=== PATIENT | male | born 1965 | race Caucasian/White ===

== ENCOUNTER 2018-04-14 20:26 | Emergency (ER) | payer BC, OTHER ==
[~2018-04-14] VITALS: Ht 177.8 cm; Wt 90.7 kg
[2018-04-14] MEDS ORDERED: LACTATED RINGERS 1,000 ML IV ONE ×2 (20:44→20:46)
[2018-04-14] MEDS ORDERED: ONDANSETRON 4 MG/2 ML (SDV) Z0FRAN IVP ONE (20:45)
[2018-04-14] MEDS ORDERED: KETOROLAC 30 MG/ML VIAL IVP ONE (20:45)
--- NOTE | 2018-04-14 20:51 | ED Abdominal Pain ---
General Stated Complaint: ABD PAIN Source of Information: Patient Exam Limitations: No Limitations History of Present Illness Date Seen by Provider: Apr 14, 2018 Time Seen by Provider: 20:34 Initial Comments The patient presents to the ER by private conveyance with a chief complaint that this morning he woke up having some crampy abdominal pain, bloating and unable to have a bowel movement for the past couple days. He says this weekend he was at [place] with a friend of his and they both were out in the sun a lot as well he does not drink much water only about 2 bottles a day plus a bottle of Gatorade. He says again while sun drink some beer and not much water this weekend and he feels like he may have overdone it. His pain is mostly in his right lower quadrant but radiates all the way across to his left lower quadrant as well. He is not been able to have any bowel movement despite trying. He feels bloated and they tried drinking some Gatorade and water to get things moving and it just made him nauseated. He said his friend also had similar symptoms except he's having diarrhea now. He has not had any fevers or chills. He's never had a abdominal surgery. He denies any history of trauma. Allergies and Home Medications Allergies Coded Allergies: No Known Drug Allergies (Unverified , 04/14/18) Patient Home Medication List Home Medication List Reviewed: Yes Review of Systems Constitutional: No chills, No diaphoresis, No fever; malaise; No weakness EENTM: No Eye Pain, No Ear Pain Respiratory: Denies Cough, Denies Shortness of Air Cardiovascular: Denies Chest Pain, Denies Edema Gastrointestinal: See HPI, Abdomen Distended, Abdominal Pain, Constipated; Denies Difficulty Swallowing; Nausea; Denies Poor Appetite; Poor Fluid Intake; Denies Rectal Bleeding, Denies Vomiting Genitourinary: Denies Burning, Denies Discharge, Denies Drainage Musculoskeletal: No back pain, No joint pain Skin: No pruritus, No rash Psychiatric/Neurological: Denies Headache, Denies Numbness, Denies Paresthesia Past Giyudwe-Quthpg-Idveok Hx Patient Social History Alcohol Use: Regular Use Alcohol Beverage of Choice: Beer Recreational Drug Use: No Recent Foreign Travel: No Contact w/Someone Who Travel: No Physical Exam Vital Signs Vital Signs - First Documented 04/14/18 20:34 Temp 98.1 Pulse 106 Resp 29 B/P (MAP) 173/125 (141) Pulse Ox 98 O2 Delivery Room Air Capillary Refill : General Appearance: WD/WN, mild distress HEENT: PERRL/EOMI, pharynx normal Neck: non-tender, normal inspection Respiratory: chest non-tender, lungs clear, no respiratory distress, no accessory muscle use Cardiovascular: normal peripheral pulses, regular rate, rhythm, no edema Peripheral Pulses: 2+ Radial Pulses (R), 2+ Radial Pulses (L) Gastrointestinal: non tender, soft, abnormal bowel sounds (quiescent); No guarding, No rebound, No tenderness; other (no psoas sign or other mesenteric signs. No Nassar's point tenderness) Neurologic/Psychiatric: alert, oriented x 3 Skin: normal color, warm/dry Progress/Results/Core Measures Results/Orders Lab Results Laboratory Tests Test 04/14/18 20:45 Range/Units White Blood Count 13.2 H 4.3-11.0 10^3/uL Red Blood Count 5.01 4.35-5.85 10^6/uL Hemoglobin 16.6 13.3-17.7 G/DL Hematocrit 46 40-54 % Mean Corpuscular Volume 91 80-99 FL Mean Corpuscular Hemoglobin 33 25-34 PG Mean Corpuscular Hemoglobin Concent 36 32-36 G/DL Red Cell Distribution Width 12.2 10.0-14.5 % Platelet Count 339 130-400 10^3/uL Mean Platelet Volume 8.5 7.4-10.4 FL Neutrophils (%) (Auto) 82 H 42-75 % Lymphocytes (%) (Auto) 8 L 12-44 % Monocytes (%) (Auto) 10 0-12 % Eosinophils (%) (Auto) 1 0-10 % Basophils (%) (Auto) 0 0-10 % Neutrophils # (Auto) 10.8 H 1.8-7.8 X 10^3 Lymphocytes # (Auto) 1.0 1.0-4.0 X 10^3 Monocytes # (Auto) 1.3 H 0.0-1.0 X 10^3 Eosinophils # (Auto) 0.1 0.0-0.3 10^3/uL Basophils # (Auto) 0.1 0.0-0.1 10^3/uL Sodium Level 135 135-145 MMOL/L Potassium Level 3.9 3.6-5.0 MMOL/L Chloride Level 99 98-107 MMOL/L Carbon Dioxide Level 22 21-32 MMOL/L Anion Gap 14 5-14 MMOL/L Blood Urea Nitrogen 8 7-18 MG/DL Creatinine 0.82 0.60-1.30 MG/DL Estimat Glomerular Filtration Rate > 60 BUN/Creatinine Ratio 10 Glucose Level 117 H 70-105 MG/DL Calcium Level 10.1 8.5-10.1 MG/DL Magnesium Level 1.9 1.8-2.4 MG/DL Total Bilirubin 1.3 H 0.1-1.0 MG/DL Aspartate Amino Transf (AST/SGOT) 40 H 5-34 U/L Alanine Aminotransferase (ALT/SGPT) 58 H 0-55 U/L Alkaline Phosphatase 93 40-136 U/L Total Protein 7.6 6.4-8.2 GM/DL Albumin 4.4 3.2-4.5 GM/DL My Orders Orders - ALDEN OLIVO Cbc With Automated Diff (04/14/18 20:44) Comprehensive Metabolic Panel (04/14/18 20:44) Magnesium (04/14/18 20:44) Abdomen, Flat & Upright/Decub (04/14/18 20:44) Saline Lock/Iv-Start (04/14/18 20:44) Lactated Ringers (Lr 1000 Ml Iv Solution (04/14/18 20:44) Ondansetron Injection (Zofran Injectio (04/14/18 20:45) Ketorolac Injection (Toradol Injection) (04/14/18 20:45) Saline Lock/Iv-Start (04/14/18 20:46) Lactated Ringers (Lr 1000 Ml Iv Solution (04/14/18 20:46) Medications Given in ED Current Medications Medications Dose Ordered Sig/Brian Route Start Time Stop Time Status Last Admin Dose Admin Ketorolac Tromethamine 15 mg ONCE ONCE IVP 04/14/18 20:45 04/14/18 20:46 DC 04/14/18 20:52 15 MG Lactated Ringer's 1,000 ml @ 0 mls/hr Q0M ONCE IV 04/14/18 20:44 04/14/18 20:46 DC 04/14/18 20:52 1,000 MLS/HR Lactated Ringer's 1,000 ml @ 0 mls/hr Q0M ONCE IV 04/14/18 20:46 04/14/18 20:47 DC 04/14/18 20:52 1,000 MLS/HR Ondansetron HCl 4 mg ONCE ONCE IVP 04/14/18 20:45 04/14/18 20:46 DC 04/14/18 20:52 4 MG Vital Signs/I&O 04/14/18 20:34 Temp 98.1 Pulse 106 Resp 29 B/P (MAP) 173/125 (141) Pulse Ox 98 O2 Delivery Room Air Progress Progress Note #1: Time: 20:50 Progress Note The patient appears dry on examination with sunburn skin. Appears she may have had too much heat exposure and is dehydrated with possible ileus. A plain film x -ray and some fluids as well as nausea and Toradol for pain and we'll reexamine him. If we see an elevated white count or other worrisome symptoms or features then we may get a CT scan but his belly is benign on examination. Progress Note #2: Time: 21:50 Progress Note The patient's pain is improved down to 1 and his nausea has resolved. He is feeling much better and is been able to get up and urinate several times. He still has about half a liter fluids left ago. We have discussed his case labs and imaging and offered further workup versus conservative care and we both agree the conservative cares probably a reasonable way to go. We'll encourage him to drink more fluids and follow up outpatient as needed. We'll make sure he has some nausea medicine and if he needs to come back to the ER he is more than welcome to return. Diagnostic Imaging Diagonstic Imaging: Xray Plain Films/CT/US/NM/MRI: abdomen Comments Nonspecific bowel gas pattern without evidence of constipation or impaction. No evidence of a transition point to allude to a obstruction. No free air. VIA [facility] [place] [place] NAME: MIL [facility]RAIZA [facility] REC#: [id number] PT STATUS: REG ER : 1965 PHYSICIAN: ALDEN OLIVO MD ADMIT DATE: 04/14/18/ER Draft Date of Exam:04/14/18 ABDOMEN, FLAT & UPRIGHT/DECUB INDICATION: Abdominal pain with nausea and emesis. EXAM: Supine images of the abdomen are obtained. FINDINGS: Overall bowel gas pattern is unremarkable. There is no evidence of bowel obstruction. No pathologic abdominal calcification is seen. There is no evidence of free intraperitoneal gas or pneumatosis. IMPRESSION: No acute abnormality is seen on radiographic study of the abdomen. Dictated on workstation # [id number] Dict: 04/14/182120 Trans: 04/14/182126 [facility] [id number] Interpreted by: NEGRITA SAINZ MD Electronically signed by: Reviewed: Reviewed by Me Departure Impression Primary Impression: Heat exhaustion Qualified Codes: T67.5XXA - Heat exhaustion, unspecified, initial encounter Additional Impressions: Moderate dehydration Ileus Disposition: HOME, SELF-CARE Condition: Improved Departure-Patient Inst. Decision time for Depature: 21:52 Referrals: GARETT FLAHERTY MD (PCP) Primary Care Physician Patient Instructions: Dehydration, Adult (DC) Add. Discharge Instructions: Make sure drinking plenty of fluids. Sports drinks or good idea as well. He should be constantly sweating when you're out in the sun as well as urinating several times throughout the day when you're working. If not then you need to take more breaks and drink water and/or sports drinks. If you have nausea then you can take one tablet of Zofran every [address] under tongue and allowed to absorb through your mouth. If your symptoms do not improve over the next several days then you should follow-up with a primary care doctor or if your symptoms worsen then you should return to the nearest ER. Copy Copies To 1: GARETT FLAHERTY MD, TITUS J Apr 14, 2018 20:51
[2018-04-14 20:53] LABS: BASOPHILS # (AUTO) 0.1 10^3/uL (0.0-0.1); BASOPHILS % (AUTO) 0 % (0-10); EOSINOPHILS # (AUTO) 0.1 10^3/uL (0.0-0.3); EOSINOPHILS % (AUTO) 1 % (0-10); HEMATOCRIT 46 % (40-54); HEMOGLOBIN 16.6 G/DL (13.3-17.7); LYMPHOCYTES % (AUTO) 8 % (12-44); MEAN CORPUSCULAR HEMOGLOBIN 33 PG (25-34); MEAN CORPUSCULAR HGB CONC 36 G/DL (32-36); MEAN CORPUSCULAR VOLUME 91 FL (80-99); MEAN PLATELET VOLUME 8.5 FL (7.4-10.4); MONOCYTES # (AUTO) 1.3 X 10^3 (0.0-1.0); MONOCYTES % (AUTO) 10 % (0-12); NEUTROPHILS # (AUTO) 10.8 X 10^3 (1.8-7.8); NEUTROPHILS % (AUTO) 82 % (42-75); PLATELET COUNT 339 10^3/uL (130-400); RED BLOOD COUNT 5.01 10^6/uL (4.35-5.85); RED CELL DISTRIBUTION WIDTH 12.2 % (10.0-14.5); WHITE BLOOD COUNT 13.2 10^3/uL (4.3-11.0)
[2018-04-14] MEDS ORDERED: ENAL20TA PO (21:02)
[2018-04-14] MEDS ORDERED: AMLO10TA2 PO (21:02)
[2018-04-14] MEDS ORDERED: CITA10TA7 PO (21:02)
[2018-04-14 21:12] LABS: ALANINE AMINOTRANSFERASE 58 U/L (0-55); ALBUMIN 4.4 GM/DL (3.2-4.5); ALKALINE PHOSPHATASE 93 U/L (40-136); BILIRUBIN,TOTAL 1.3 MG/DL (0.1-1.0); BUN/CREATININE RATIO 10; CALCIUM 10.1 MG/DL (8.5-10.1); CARBON DIOXIDE 22 MMOL/L (21-32); CHLORIDE 99 MMOL/L (98-107); CREATININE SERUM 0.82 MG/DL (0.60-1.30); GFR ESTIMATED > 60; GLUCOSE 117 MG/DL (70-105); MAGNESIUM 1.9 MG/DL (1.8-2.4); POTASSIUM 3.9 MMOL/L (3.6-5.0); SODIUM 135 MMOL/L (135-145); TOTAL PROTEIN 7.6 GM/DL (6.4-8.2)
--- NOTE | 2018-04-14 21:27 | Diagnostic Imaging Report ---
INDICATION: Abdominal pain with nausea and emesis. EXAM: Supine images of the abdomen are obtained. FINDINGS: Overall bowel gas pattern is unremarkable. There is no evidence of bowel obstruction. No pathologic abdominal calcification is seen. There is no evidence of free intraperitoneal gas or pneumatosis. IMPRESSION: No acute abnormality is seen on radiographic study of the abdomen. Dictated by: Dictated on workstation # [id number]
[2018-04-14] MEDS ORDERED: RX-ONDANSETRON 4 MG ODT (ZOFRAN) PPK #4 PO STA (21:54)
[2018-04-14] MEDS ORDERED: RX-ONDANSETRON 4 MG ODT (ZOFRAN) PPK #4 ONE (21:55)
[2018-04-14 22:04] VITALS: BP 158/81
== END 2018-04-14 22:04 | disposition home or self-care (01) ==
LOC: ER 20:29
DX: T67.5XXA Heat exhaustion, unspecified, initial encounter (principal); E86.0 Dehydration; K56.7 Ileus, unspecified
CPT/HCPCS: 36415; 74019; 80053; 83735; 85025; 96361; 96374; 96375

== ENCOUNTER 2018-04-15 04:39 | Inpatient (IN) | payer BC ==
[~2018-04-15] VITALS: Ht 177.8 cm; Wt 90.5 kg
[~2018-04-15 04:39] MED LIST: AMLO10TA2 PO; CITA10TA7 PO; ENAL20TA PO
[2018-04-15] MEDS ORDERED: LACTATED RINGERS 1,000 ML IV ONE (04:49)
--- NOTE | 2018-04-15 04:56 | ED Abdominal Pain ---
General Stated Complaint: LEFT SIDE PAIN Source of Information: Patient Exam Limitations: No Limitations (ALDEN OLIVO) History of Present Illness Date Seen by Provider: Apr 15, 2018 Time Seen by Provider: 04:44 Initial Comments Patient reports since mirna for the second time for abdominal pain. Previously he was seen by this provider was thought that he had some abdominal pain with a fairly unremarkable abdominal x-ray and was due to dehydration, heat exhaustion. His electrolytes and kidney function were okay. He did have a white count of 13,000 which was inconclusive and since he had improved after a couple liters of fluid and some nausea and NSAIDs we'll let him go home. He says he was doing okay and got some sleep but then was woke up with more pain now on his left upper quadrant and he took some Gas-X as well as Pepcid a couple hours ago and another nausea pill and his pain is Getting worse to the point he is having some sweats. He does not think he has had any fever or chills. His nausea did come back but he took Zofran and that took care of it. He has not had any surgery or trauma to his abdomen. He has not had any bowel movements. Tonight he drank 2 more bottles of water. (ALDEN OLIVO) Allergies and Home Medications Allergies Coded Allergies: No Known Drug Allergies (Unverified , 04/14/18) Patient Home Medication List Home Medication List Reviewed: Yes (ALDEN OLIVO) Review of Systems Constitutional: No chills; diaphoresis; No fever; malaise EENTM: No Blurred Vision, No Eye Pain Respiratory: Denies Cough, Denies Shortness of Air Cardiovascular: Denies Chest Pain, Denies Edema Gastrointestinal: See HPI, Abdomen Distended, Abdominal Pain; Denies Constipated, Denies Diarrhea; Nausea Musculoskeletal: No back pain, No joint pain Skin: No dryness, No pruritus, No rash Psychiatric/Neurological: Denies Headache, Denies Numbness (ALDEN OLIVO) Past Ghzjgxt-Gxxzhc-Pqwewf Hx Patient Social History Alcohol Use: Occasionally Uses Alcohol Beverage of Choice: Beer Recreational Drug Use: No Smoking Status: Current Everyday Smoker Type Used: Cigars Recent Foreign Travel: No Contact w/Someone Who Travel: No Recent Hopitalizations: No (ALDEN OLIVO) Immunizations Up To Date Tetanus Booster (TDap): Unknown PED Vaccines UTD: Yes (ALDEN OLIVO) Seasonal Allergies Seasonal Allergies: No (ALDEN OLIVO) Past Medical History Surgeries: No Respiratory: No Cardiac: Yes Hypertension Neurological: No Genitourinary: No Gastrointestinal: No Musculoskeletal: No Endocrine: No HEENT: No Cancer: No Psychosocial: No Integumentary: No (ALDEN OLIVO) Physical Exam Vital Signs Vital Signs - First Documented 04/15/18 04:43 Pulse 121 Resp 20 B/P (MAP) 152/103 (119) Pulse Ox 97 O2 Delivery Room Air (MARIUSZ HOGUE MD) Vital Signs Capillary Refill : (ALDEN OLIVO) General Appearance: WD/WN, mild distress HEENT: PERRL/EOMI, pharynx normal Respiratory: no respiratory distress, no accessory muscle use Cardiovascular: normal peripheral pulses, regular rate, rhythm, tachycardia Gastrointestinal: non tender, soft, abnormal bowel sounds (hypoactive) Extremities: non-tender, normal inspection, no pedal edema, normal capillary refill Neurologic/Psychiatric: alert, normal mood/affect, oriented x 3 Skin: normal color, diaphoresis, damp (ALDEN OLIVO) Focused Exam Lactate Level 04/15/18 05:03: Lactic Acid Level 1.16 (MARIUSZ HOGUE MD) Lactic Acid Level Laboratory Tests Test 04/15/18 05:03 Lactic Acid Level 1.16 MMOL/L (0.50-2.00) (MARIUSZ HOGUE MD) Progress/Results/Core Measures Results/Orders Lab Results Laboratory Tests Test 04/15/18 05:03 04/15/18 05:50 Range/Units Lactic Acid Level 1.16 0.50-2.00 MMOL/L Triglycerides Level 81 <150 MG/DL (MARIUSZ HOGUE MD) Medications Given in ED Current Medications Medications Dose Ordered Sig/Brian Route Start Time Stop Time Status Last Admin Dose Admin Fentanyl Citrate 50 mcg ONCE ONCE IVP 04/15/18 05:00 04/15/18 05:01 DC 04/15/18 05:00 50 MCG Fentanyl Citrate 50 mcg ONCE ONCE IVP 04/15/18 06:00 04/15/18 06:02 DC 04/15/18 05:59 50 MCG Iohexol 100 ml ONCE ONCE IV 04/15/18 05:15 04/15/18 05:16 DC 04/15/18 05:15 100 ML Lactated Ringer's 1,000 ml @ 0 mls/hr Q0M ONCE IV 04/15/18 04:49 04/15/18 04:51 DC 04/15/18 05:00 1,000 MLS/HR Sodium Chloride 250 ml ONCE ONCE IV 04/15/18 05:15 04/15/18 05:16 DC 04/15/18 05:15 80 ML (MARIUSZ HOGUE MD) Vital Signs/I&O 04/15/18 04:43 Pulse 121 Resp 20 B/P (MAP) 152/103 (119) Pulse Ox 97 O2 Delivery Room Air (MARIUSZ HOGUE MD) Progress Progress Note #1: Time: 04:55 Progress Note He is experiencing pain out of proportion to examination. Bowel sounds are still quiescent. His x-ray didn't really show anything in his bowels from earlier so not surprised that he has not had a bowel movement but is having quite a bit of pain is not relieved with Gas-X and there wasn't really a lot of gas seen on the bowel shadows from earlier either. He is tachycardic, sweating despite having fairly unremarkable labs from earlier. Don't think there is much utility in repeating the labs right now; instead we will go ahead and obtain a lactate and the CT scan of his abdomen with contrast. Then we will Give him another bag of fluids and something for his pain with opiates. His nausea is under control right now. Progress Note #2: Time: 06:02 Progress Note 50 of fentanyl he had minimal effect. His nausea has improved. Ranitidine 50 more micrograms of fentanyl and write orders for him to stay overnight. We'll obtain a triglyceride level in addition to the lipase. Will pass Care to Dr. Mariusz Wiseman to give report to Dr. Hollins. (ALDEN OLIVO) Progress Note : Time: 06:35 Progress Note Case was discussed with Dr. Hollins and plan for admission reviewed. Dr. Hollins is agreeable to admission. (MARIUSZ HOGUE MD) Diagnostic Imaging Diagonstic Imaging: CT Plain Films/CT/US/NM/MRI: abdomen, pelvis Comments Peripancreatic fat infiltration consistent with acute appendicitis. Fatty liver Inflammation is also seen involving the gastric antrum and duodenum. Reviewed: [facility] Reviewed by Me (ALDEN OLIVO) Transfer of Care Time: 06:05 Care transferred to: Dr. Wiseman (ALDEN OLIVO) Departure Communication (Admissions) Time/Spoke to Admitting Phy: 06:00 Dr. Hollins discussed case lab imaging findings and plan for pain medicines, nausea medicines and fluids. (ALDEN OLIVO) Impression Primary Impression: Pancreatitis Qualified Codes: K85.90 - Acute pancreatitis without necrosis or infection, unspecified Disposition: ADMITTED INPATIENT Condition: Stable Admissions Decision to Admit Reason: Admit from ER (General) Decision to Admit/Date: Apr 15, 2018 Time/Decision to Admit Time: 05:56 (ALDEN OLIVO) Departure-Patient Inst. Referrals: GARETT FLAHERTY MD (PCP/Family) Primary Care Physician Copy Copies To 1: GARETT FLAHERTY MD, TITUS J Apr 15, 2018 04:56 MARIUSZ HOGUE MD Apr 15, 2018 06:36
[2018-04-15] MEDS ORDERED: fentaNYL INJECTION 100 MCG/2 ML AMP IVP ONE ×2 (05:00→06:00)
[2018-04-15] MEDS ORDERED: NS 250 ML (IVPB) BAG IV ONE (05:15)
[2018-04-15] MEDS ORDERED: IOHEXOL 350 MG/ML 100 ML (OMNIPAQUE 350) VIAL IV ONE (05:15)
[2018-04-15 06:18] LABS: TRIGLYCERIDES 81 MG/DL (<150)
[2018-04-15 06:38] LABS: LIPASE 1494 U/L (8-78)
[2018-04-15] MEDS ORDERED: 1/2 NS W/KCL 20 MEQ/L 1,000 ML IV ONE (06:59)
[2018-04-15] MEDS: fentaNYL INJECTION 100 MCG/2 ML AMP IVP PRN ×3 (07:07→12:25)
[2018-04-15] MEDS: 1/2 NS W/KCL 20 MEQ/L 1,000 ML IV SCH ×4 (07:07→22:55)
--- NOTE | 2018-04-15 07:07 | Diagnostic Imaging Report ---
PROCEDURE: CT abdomen and pelvis with contrast. TECHNIQUE: Multiple contiguous axial images were obtained through the abdomen and pelvis after administration of intravenous contrast. INDICATION: Left upper abdominal pain. COMPARISON: None. FINDINGS: Lung bases are clear. There is mild fatty infiltration of the liver. There is some inflammatory change involving the pancreas and peripancreatic fat compatible with acute pancreatitis. There is no pseudocyst or mass. There is no necrosis. No obvious cholelithiasis or intrahepatic biliary duct dilatation is seen. The spleen, adrenal glands, kidneys, vascular structures and bowel are unremarkable. There is no ascites. Distal ureters and urinary bladder are normal. There is some slight prostate enlargement. Osseous structures are age-appropriate. IMPRESSION: 1. Acute pancreatitis without pseudocyst or necrosis. 2. Fatty liver. Agree with preliminary report. Dictated by: Dictated on workstation # [id number]
[2018-04-15 07:25] VITALS: BP 174/88
[2018-04-15] MEDS ORDERED: ONDANSETRON 4 MG/2 ML (SDV) Z0FRAN IVP PRN (07:30)
[2018-04-15] MEDS: raNItidine 50 MG/2 ML INJ (ZANTAC) IM/IV SCH ×2 (08:00→21:24)
[2018-04-15] MEDS: KETOROLAC 15 MG/ML VIAL IVP PRN ×2 (08:05→16:30)
[2018-04-15 11:49] VITALS: BP 174/92
--- NOTE | 2018-04-15 14:11 | History & Physical-Hospitalist ---
History of Present Illness HPI/Chief Complaint The patient is a 52-year-old white male known to me as we played basketball together at the [facility] in the early . He reports that he had a terrible bellyache yesterday and came to the emergency room. He was given IV fluids and analgesics and felt much better and went home. He returned later with severe abdominal pain. Workup at this time included CT scan which was positive for pancreatitis, and a lipase of 1494. He continues to have pain and reports that his pain medicine does not seem to last long enough. He has not previously had a bout of pancreatitis. He has no known gallbladder disease. He reports that he takes about 4 ounces of bourbon daily. He had recently been on vacation in [place] and had a higher consumption rate. Source: patient Exam Limitations: no limitations Date Seen 04/15/18 Time Seen by Provider: 14:06 Attending Physician Eric Julien MD PCP Caleb Gonsales MD Referring Physician Date of Admission Apr 15, 2018 at 06:00 Home Medications & Allergies Home Medications Reviewed patient Home Medication Reconciliation performed by pharmacy medication reconciliations electrocardiogram technician and/or nursing. Patients Allergies have been reviewed. Allergies Allergies Coded Allergies No Known Drug Allergies (Unverified04/14/18) Past Xlkugev-Nuxlja-Oxprpc Hx Past Med/Social Hx: Reviewed Nursing Past Med/Soc Hx Patient Social History Alcohol Use: Occasionally Uses Number of Drinks Today: AA Alcohol Beverage of Choice: Beer Recreational Drug Use: No Smoking Status: Current Everyday Smoker Type Used: Cigars Physical Abuse Screen: No Sexual Abuse: No Recent Foreign Travel: No Contact w/other who traveled: No Recent Hopitalizations: No Recent Infectious Disease Expo: No Immunizations Up To Date Tetanus Booster (TDap): Unknown Pediatric: Yes Seasonal Allergies Seasonal Allergies: No Past Medical History Cardiac: Hypertension Gastrointestinal: Pancreatitis Family History Cardiovascular disease Hypertension Respiratory disorder Review of Systems Constitutional: see HPI EENTM: no symptoms reported Respiratory: no symptoms reported Cardiovascular: no symptoms reported Gastrointestinal: abdominal pain (periumbilical) Genitourinary: no symptoms reported Musculoskeletal: no symptoms reported Skin: no symptoms reported Psychiatric/Neurological: No Symptoms Reported Physical Exam Physical Exam Vital Signs Vital Signs - First Documented 04/15/18 04/15/18 04:43 07:25 Temp 97.9 Pulse 121 Resp 20 B/P (MAP) 152/103 (119) Pulse Ox 97 O2 Delivery Room Air Capillary Refill : Less Than 3 Seconds General Appearance: Mild Distress, Moderate Distress Eyes: Bilateral Eye Normal Inspection HEENT: PERRL/EOMI, Normal ENT Inspection, Pharynx Normal Neck: Full Range of Motion, Normal Inspection, Non Tender, Supple, Carotid Bruit Respiratory: Chest Non Tender, Lungs Clear, Normal Breath Sounds, No Accessory Muscle Use, No Respiratory Distress Cardiovascular: Regular Rate, Rhythm, No Edema, No Gallop, No JVD, No Murmur Gastrointestinal: Abnormal Bowel Sounds (decreased), Guarding Extremity: Normal Capillary Refill, Normal Inspection, Normal Range of Motion Neurologic/Psychiatric: Alert, Oriented x3, No Motor/Sensory Deficits, Normal 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 Assessment/Plan Admission Diagnosis Acute pancreatitis Admission Status: Inpatient Order (span 2 midnights) Reason for Inpatient Admission: Fluids and pain control Assessment and Plan Patient will remain nothing by mouth. Analgesics will be modified. Lipase will be repeated in the a.m. ERIC JULIEN MD Apr 15, 2018 14:11
[2018-04-15] MEDS: HYDROmorphone 1 MG/ML (DILAUDID) 1 ML SYRINGE IV PRN ×3 (14:51→22:52)
[2018-04-15 15:25] VITALS: BP 156/95
[2018-04-15 19:10] VITALS: BP 158/84
[2018-04-16 00:05] VITALS: BP 152/93
[2018-04-16] MEDS: KETOROLAC 15 MG/ML VIAL IVP PRN ×2 (02:56→10:24)
[2018-04-16] MEDS: 1/2 NS W/KCL 20 MEQ/L 1,000 ML IV SCH ×2 (02:56→07:51)
[2018-04-16] MEDS: HYDROmorphone 1 MG/ML (DILAUDID) 1 ML SYRINGE IV PRN ×2 (03:07→07:14)
[2018-04-16 04:21] VITALS: BP 162/89
[2018-04-16 05:25] LABS: BASOPHILS % (AUTO) 0 % (0-10); EOSINOPHILS % (AUTO) 0 % (0-10); HEMATOCRIT 52 % (40-54); LYMPHOCYTES # (AUTO) 0.8 X 10^3 (1.0-4.0); LYMPHOCYTES % (AUTO) 3 % (12-44); MEAN CORPUSCULAR HEMOGLOBIN 34 PG (25-34); MEAN CORPUSCULAR HGB CONC 36 G/DL (32-36); MEAN CORPUSCULAR VOLUME 92 FL (80-99); MEAN PLATELET VOLUME 8.9 FL (7.4-10.4); MONOCYTES # (AUTO) 1.1 X 10^3 (0.0-1.0); MONOCYTES % (AUTO) 5 % (0-12); NEUTROPHILS # (AUTO) 21.4 X 10^3 (1.8-7.8); NEUTROPHILS % (AUTO) 92 % (42-75); PLATELET COUNT 295 10^3/uL (130-400); RED BLOOD COUNT 5.68 10^6/uL (4.35-5.85); RED CELL DISTRIBUTION WIDTH 12.3 % (10.0-14.5); WHITE BLOOD COUNT 23.4 10^3/uL (4.3-11.0)
[2018-04-16 05:46] LABS: BUN/CREATININE RATIO 14; CALCIUM 8.5 MG/DL (8.5-10.1); CARBON DIOXIDE 18 MMOL/L (21-32); CHLORIDE 105 MMOL/L (98-107); CREATININE SERUM 0.84 MG/DL (0.60-1.30); GFR ESTIMATED > 60; GLUCOSE 109 MG/DL (70-105); LIPASE 1017 U/L (8-78); POTASSIUM 6.2 MMOL/L (3.6-5.0); SODIUM 134 MMOL/L (135-145)
[2018-04-16 05:54] LABS: BAND NEUTROPHILS 20 %; LYMPHOCYTES % (MANUAL) 2 %; METAMYELOCYTES % 2 %; MONOCYTES % (MANUAL) 2 %; NEUTROPHILS % (MANUAL) 74 %
[2018-04-16 05:55] LABS: RBC MORPH NORMAL
[2018-04-16 08:00] VITALS: BP 155/104
[2018-04-16] MEDS: raNItidine 50 MG/2 ML INJ (ZANTAC) IM/IV SCH ×2 (09:06→20:17)
[2018-04-16] MEDS ORDERED: 1/2 NS IV SOLUTION 1,000 ML IV PRN (10:07)
[2018-04-16] MEDS ORDERED: LORazepam 1 MG (ATIVAN) TAB PO PRN (10:15)
[2018-04-16] MEDS ORDERED: D5 1/2 NS 1000 ML IV SOLUTION 1,000 ML IV PRN (10:15)
[2018-04-16] MEDS ORDERED: LORazepam INJ 2 MG/ML (ATIVAN) VIAL IV PRN (10:15)
[2018-04-16] MEDS ORDERED: LORazepam INJ 2 MG/ML (ATIVAN) VIAL IM/IV PRN (10:15)
[2018-04-16] MEDS ORDERED: NS IV 1000 ML 1,000 ML ONE (11:16)
[2018-04-16] MEDS ORDERED: NS IV 1000 ML 1,000 ML IV SCH (11:26)
[2018-04-16] MEDS ORDERED: METOCLOPRAMIDE INJ 10 MG/2 ML (REGLAN) IV PRN (11:30)
[2018-04-16] MEDS ORDERED: ONDANSETRON 4 MG/2 ML (SDV) Z0FRAN IV PRN (11:30)
[2018-04-16] MEDS ORDERED: HYDROmorphone PF INJECTION 10 MG in NS (IVPB) 50 ML IV SCH (11:30)
[2018-04-16] MEDS ORDERED: NALOXONE 0.4 MG/ML 1 ML (NARCAN) VIAL IV PRN (11:30)
[2018-04-16] MEDS ORDERED: diphenhydrAMINE 50 MG/ML INJ (BENADRYL) IV PRN (11:30)
--- NOTE | 2018-04-16 11:32 | Progress Note-Hospitalist ---
Subjective HPI/CC On Admission Date Seen by Provider: Apr 16, 2018 Time Seen by Provider: 10:30 The patient is a 52-year-old white male known to me as we played basketball together at the [facility] in the early . He reports that he had a terrible bellyache yesterday and came to the emergency room. He was given IV fluids and analgesics and felt much better and went home. He returned later with severe abdominal pain. Workup at this time included CT scan which was positive for pancreatitis, and a lipase of 1494. He continues to have pain and reports that his pain medicine does not seem to last long enough. He has not previously had a bout of pancreatitis. He has no known gallbladder disease. He reports that he takes about 4 ounces of bourbon daily. He had recently been on vacation in [place] and had a higher consumption rate. Subjective/Events-last exam Patient doing about the same No pain unless he gets up and moves around Talked about alcohol consumption Alcohol withdrawal orders given in case he goes through withdrawal Consulting Dr. Goodman general surgery Review of Systems Gastrointestinal: Nausea, Abdominal Pain Focused Exam Lactate Level 04/15/18 05:03: Lactic Acid Level 1.16 Objective Exam Vital Signs Vital Signs Date Time Temp Pulse Resp B/P (MAP) Pulse Ox O2 Delivery O2 Flow Rate FiO2 04/16/18 16:07 100.0 138 16 145/94 (111) 90 Room Air Capillary Refill : Less Than 3 Seconds General Appearance: No Apparent Distress, WD/WN, Chronically ill Respiratory: Lungs Clear, Normal Breath Sounds Cardiovascular: Regular Rate, Rhythm, No Edema Gastrointestinal: Tenderness Neurologic/Psychiatric: Alert, Oriented x3, No Motor/Sensory Deficits, Normal Mood/Affect Results/Procedures Lab Laboratory Tests 04/16/18 05:17 Patient resulted labs reviewed. Assessment/Plan Assessment and Plan Assess & Plan/Chief Complaint Assessment: Acute pancreatitis Plan: Dr. 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
[2018-04-16 12:00] VITALS: BP 175/101
[2018-04-16] MEDS: NS IV 1000 ML 1,000 ML IV SCH ×3 (12:41→23:45)
--- NOTE | 2018-04-16 13:48 | Diagnostic Imaging Report ---
PROCEDURE: US abdomen complete. TECHNIQUE: Multiple real-time grayscale images were obtained over the abdomen in various projections. INDICATION: Pancreatitis. FINDINGS: The pancreas, aorta, and IVC are obscured by bowel gas. The liver is upper limits of normal in size at 18.1 cm. No discrete liver mass is detected. No intrahepatic ductal dilatation is seen. The extrahepatic bile duct is obscured by bowel gas. Spleen is normal in size. Right and left kidneys are unremarkable. No calculi are seen. There is no hydronephrosis. The gallbladder is without stones or sludge. No wall thickening is seen. There does appear to be right pleural effusion noted. Minimal free fluid in the abdomen is also seen adjacent to the liver. IMPRESSION: Compromised by bowel gas. There is no definite evidence of cholelithiasis or acute cholecystitis. There is a small right pleural effusion and minimal abdominal ascites. Dictated by: Dictated on workstation # [id number]
[2018-04-16 16:07] VITALS: BP 145/94
[2018-04-16] MEDS ORDERED: amLODIPine 10 MG (NORVASC) TAB ONE (16:24)
[2018-04-16] MEDS ORDERED: ENALAPRIL 10 MG (VASOTEC) TAB ONE (16:25)
[2018-04-16] MEDS: amLODIPine 10 MG (NORVASC) TAB PO SCH (16:27)
[2018-04-16] MEDS: ENALAPRIL 10 MG (VASOTEC) TAB PO SCH (16:27)
--- NOTE | 2018-04-16 17:07 | CONSULTATION REPORT ---
DATE OF SERVICE: 04/16/2018 ATTENDING PRIMARY CARE PHYSICIAN: Dr. Paul Gonsales. ADMITTING PHYSICIAN: Dr. Hollins. The patient is a 52-year-old male who was admitted approximately 2 days ago for severe abdominal pain. This gentleman is very sincere and honest and states that he does drink alcohol on a daily basis. He reports that he drinks approximately 6 beers a day as well as a mixed drink with bourbon on a daily basis. He reports on the weekends this does increase to a point of about 10 beers as well as two mixed drinks on a daily basis. On a yearly basis, he always takes a trip with friends and proceed with a binge style drinking. Since returning from his recent trip, he did develop this worsening abdominal pain in the epigastric region. He was seen in the Emergency Department where he had an elevated lipase as well as elevated hemoglobin and hematocrit consistent with significant dehydration. A CT scan was then performed which did show an inflammation of the pancreas; however, no signs of pancreatic ischemia or necrosis as well as no necrotizing pancreatitis. Since being admitted and placed on IV fluids, he has felt better and does have adequate pain control. He reports that he does have a plan on decreasing his alcohol intake significantly until his alcohol intake is to a minimum. He also states that he did have some nausea and vomiting before he came in; however, this has resolved as well. Upon examination today, he does have some pain in the epigastric region; however, there are no peritoneal signs. PAST MEDICAL HISTORY: Hypertension. PAST SURGICAL HISTORY: None. ALLERGIES: No known drug allergies. MEDICATIONS: Enalapril 40 mg daily, citalopram 10 mg daily, amlodipine 10 mg daily. SOCIAL HISTORY: Negative smoke with daily alcohol as well as increased alcohol intake on the weekends as well as holidays. VITAL SIGNS: Temperature 100.0, blood pressure 145/94, pulse 138, respirations 16, pulse ox 90% on room air. REVIEW OF SYSTEMS: A well-nourished male currently in no acute distress. He is not experiencing any shortness of breath or difficulty breathing. No chest pain, palpitations, diaphoresis. No nausea, vomiting. No diarrhea, constipation. No fever, chills. No recent inadvertent weight loss. He does have significant pain in the epigastric region; however, this has improved since being admitted. All other review of systems is negative. PHYSICAL EXAMINATION: CHEST: Clear. Good breath sounds bilaterally. HEART: Regular, no murmurs. EXTREMITIES: No lower extremity edema, negative Homans sign. HEENT: No scleral icterus. No cervical lymphadenopathy. ABDOMEN: Soft, nondistended. There is pain in the epigastric region upon palpation with no peritoneal signs. SKIN: Warm, dry. LABORATORY DATA: WBC 23.4, hemoglobin 19.0, hematocrit 52, platelets 295, BUN is 12, creatinine 0.84. Lipase 1000. ASSESSMENT AND PLAN: A 52-year-old male with noncomplicated acute pancreatitis. This is also his first episode. Based on his bedside index severity acute pancreatitis score, he does not have any and his risk of morbidity and mortality is low at this point. We will recommend continued conservative management with bowel rest, a low protein, low fat diet as well as fluid hydration. The etiology of his pancreatitis is most likely from excessive alcohol ingestion and a recommendation is that he proceed with a decreasing alcohol intake to the point where he does not drink anymore or any at all because with every episode, there is an increased risk of complicated diverticulitis, complications of diverticulitis and this was explained to him in depth. For now, he is doing well and has responded well to medical therapy and his diet has been advanced to a low fat diet. We will continue to monitor his progress. Job ID: [id number] DocumentID: [id number] Dictated Date: 04/16/2018 16:35:49 Hand Scraper Date: 04/16/2018 17:06:18 Dictated By: MALLORIE MENDOZA MD MTDD
[2018-04-16 20:00] VITALS: BP 133/93
[2018-04-17] VITALS (7 sets, daily range): BP systolic 133–162; BP diastolic 78–92
[2018-04-17] MEDS: NS IV 1000 ML 1,000 ML IV SCH ×3 (06:01→13:05)
[2018-04-17 08:02] LABS: BASOPHILS % (AUTO) 0 % (0-10); EOSINOPHILS % (AUTO) 0 % (0-10); HEMATOCRIT 50 % (40-54); HEMOGLOBIN 17.4 G/DL (13.3-17.7); LYMPHOCYTES # (AUTO) 0.7 X 10^3 (1.0-4.0); LYMPHOCYTES % (AUTO) 4 % (12-44); MEAN CORPUSCULAR HEMOGLOBIN 33 PG (25-34); MEAN CORPUSCULAR HGB CONC 35 G/DL (32-36); MEAN CORPUSCULAR VOLUME 94 FL (80-99); MEAN PLATELET VOLUME 9.6 FL (7.4-10.4); MONOCYTES # (AUTO) 1.8 X 10^3 (0.0-1.0); MONOCYTES % (AUTO) 10 % (0-12); NEUTROPHILS # (AUTO) 14.9 X 10^3 (1.8-7.8); NEUTROPHILS % (AUTO) 86 % (42-75); PLATELET COUNT 312 10^3/uL (130-400); RED BLOOD COUNT 5.34 10^6/uL (4.35-5.85); RED CELL DISTRIBUTION WIDTH 12.5 % (10.0-14.5); WHITE BLOOD COUNT 17.5 10^3/uL (4.3-11.0)
[2018-04-17 08:20] LABS: ALANINE AMINOTRANSFERASE 25 U/L (0-55); ALBUMIN 3.2 GM/DL (3.2-4.5); ALKALINE PHOSPHATASE 66 U/L (40-136); BILIRUBIN,TOTAL 1.1 MG/DL (0.1-1.0); BUN/CREATININE RATIO 20; CALCIUM 8.8 MG/DL (8.5-10.1); CARBON DIOXIDE 16 MMOL/L (21-32); CHLORIDE 106 MMOL/L (98-107); CREATININE SERUM 0.79 MG/DL (0.60-1.30); GFR ESTIMATED > 60; GLUCOSE 102 MG/DL (70-105); LIPASE 343 U/L (8-78); SODIUM 133 MMOL/L (135-145); TOTAL PROTEIN 6.4 GM/DL (6.4-8.2)
[2018-04-17] MEDS: ENALAPRIL 10 MG (VASOTEC) TAB PO SCH (08:34)
[2018-04-17] MEDS: SENNA W/DOCUSATE (SENOKOT S) TABLET PO SCH (08:34)
[2018-04-17] MEDS: raNItidine 50 MG/2 ML INJ (ZANTAC) IM/IV SCH ×2 (08:34→20:33)
[2018-04-17] MEDS: amLODIPine 10 MG (NORVASC) TAB PO SCH (08:34)
--- NOTE | 2018-04-17 10:38 | Progress Note-Hospitalist ---
Subjective HPI/CC On Admission Date Seen by Provider: Apr 17, 2018 Time Seen by Provider: 10:00 The patient is a 52-year-old white male known to me as we played basketball together at the [facility] in the early . He reports that he had a terrible bellyache yesterday and came to the emergency room. He was given IV fluids and analgesics and felt much better and went home. He returned later with severe abdominal pain. Workup at this time included CT scan which was positive for pancreatitis, and a lipase of 1494. He continues to have pain and reports that his pain medicine does not seem to last long enough. He has not previously had a bout of pancreatitis. He has no known gallbladder disease. He reports that he takes about 4 ounces of bourbon daily. He had recently been on vacation in [place] and had a higher consumption rate. Subjective/Events-last exam Patient doing better Encouraged him to take a shower and walking the halls Is only on clear liquids No BM yet Appreciate Dr. Goodman consultation Ultrasound reviewed Review of Systems Gastrointestinal: Abdominal Pain Focused Exam Lactate Level 04/15/18 05:03: Lactic Acid Level 1.16 Objective Exam Vital Signs Vital Signs Date Time Temp Pulse Resp B/P (MAP) Pulse Ox O2 Delivery O2 Flow Rate FiO2 04/17/18 08:25 91 Room Air 04/17/18 08:00 99.0 133 18 156/85 (108) Capillary Refill : Less Than 3 Seconds General Appearance: No Apparent Distress, WD/WN, Chronically ill Respiratory: Lungs Clear, Normal Breath Sounds Cardiovascular: Regular Rate, Rhythm, No Edema Gastrointestinal: Tenderness (mild) Neurologic/Psychiatric: Alert, Oriented x3, No Motor/Sensory Deficits, Normal Mood/Affect Results/Procedures Lab Laboratory Tests 04/17/18 07:19 Patient resulted labs reviewed. Assessment/Plan Assessment and Plan Assess & Plan/Chief Complaint Assessment: Acute pancreatitis Plan: Dr. 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
--- NOTE | 2018-04-17 14:21 | Progress Note (SOAP) ---
Subjective Date Seen by Provider: Apr 17, 2018 Time Seen by Provider: 14:00 Subjective/Events-last exam Patient seen with Dr. Goodman. Patient reports that he is continuing to improve but still has has some discomfort in the left upper flank/back area. No nausea/ vomiting. Tolerating sips of liquids. Ambulating. Reports passing gas but no BM yet. No fever/chills. Focused Exam Lactate Level 04/15/18 05:03: Lactic Acid Level 1.16 Objective Exam Vital Signs Date Time Temp Pulse Resp B/P (MAP) Pulse Ox O2 Delivery O2 Flow Rate FiO2 04/17/18 08:25 91 Room Air 04/17/18 08:00 99.0 133 18 156/85 (108) 91 Room Air 04/17/18 04:00 99.0 146 24 140/92 (108) 95 Room Air 04/17/18 00:00 97.3 127 16 151/85 (107) 90 Room Air 04/16/18 21:00 18 04/16/18 20:00 100.8 133 16 133/93 (106) 90 Room Air 04/16/18 16:07 100.0 138 16 145/94 (111) 90 Room Air I & O 04/17/18 07:00 Intake Total 2924 ml Balance 2924 ml Capillary Refill : Less Than 3 Seconds General Appearance: No Apparent Distress, WD/WN HEENT: PERRL/EOMI Neck: Full Range of Motion, Normal Inspection, Non Tender, Supple Respiratory: Chest Non Tender, Lungs Clear, Normal Breath Sounds, No Accessory Muscle Use, No Respiratory Distress Cardiovascular: Regular Rate, Rhythm, No Edema Gastrointestinal: normal bowel sounds, non tender, soft Extremity: Normal Capillary Refill, Normal Inspection, Normal Range of Motion, Non Tender, No Calf Tenderness, No Pedal Edema Neurologic/Psychiatric: Alert, Oriented x3 Skin: Normal Color, Warm/Dry Results Lab Laboratory Tests 04/17/18 07:19: White Blood Count 17.5H, Red Blood Count 5.34, Hemoglobin 17.4, Hematocrit 50, Mean Corpuscular Volume 94, Mean Corpuscular Hemoglobin 33, Mean Corpuscular Hemoglobin Concent 35, Red Cell Distribution Width 12.5, Platelet Count 312, Mean Platelet Volume 9.6, Neutrophils (%) (Auto) 86H, Lymphocytes (%) (Auto) 4L , Monocytes (%) (Auto) 10, Eosinophils (%) (Auto) 0, Basophils (%) (Auto) 0, Neutrophils # (Auto) 14.9H, Lymphocytes # (Auto) 0.7L, Monocytes # (Auto) 1.8H, Eosinophils # (Auto) 0.0, Basophils # (Auto) 0.0, Sodium Level 133L, Potassium Level 5.0, Chloride Level 106, Carbon Dioxide Level 16L, Anion Gap 11, Blood Urea Nitrogen 16, Creatinine 0.79, Estimat Glomerular Filtration Rate > 60, BUN/ Creatinine Ratio 20, Glucose Level 102, Calcium Level 8.8, Total Bilirubin 1.1H , Aspartate Amino Transf (AST/SGOT) 37H, Alanine Aminotransferase (ALT/SGPT) 25 , Alkaline Phosphatase 66, Total Protein 6.4, Albumin 3.2, Lipase 343H Assessment/Plan Assessment/Plan Assess & Plan/Chief Complaint A 52 year old male with noncomplicated acute pancreatitis. VSS. Labs improving. Continue with medical management with pain meds, IV fluids, and clear liquid diet. Will continue to monitor labs for improvement. MADELYN MOORE HEAVY EQUIPMENT TECHNICIAN Apr 17, 2018 14:21
[2018-04-17] MEDS: HYDROcodone/APAP 5 MG/325 MG (LORTAB) TAB PO PRN ×2 (17:42→22:04)
[2018-04-18] VITALS: BP 161/93
[2018-04-18 04:05] VITALS: BP 163/85
[2018-04-18] MEDS: NS IV 1000 ML 1,000 ML IV SCH ×2 (04:50→11:26)
[2018-04-18] MEDS: HYDROcodone/APAP 5 MG/325 MG (LORTAB) TAB PO PRN ×2 (04:54→09:04)
[2018-04-18 05:26] LABS: BASOPHILS % (AUTO) 0 % (0-10); EOSINOPHILS # (AUTO) 0.1 10^3/uL (0.0-0.3); EOSINOPHILS % (AUTO) 1 % (0-10); HEMATOCRIT 43 % (40-54); HEMOGLOBIN 15.2 G/DL (13.3-17.7); LYMPHOCYTES # (AUTO) 0.5 X 10^3 (1.0-4.0); LYMPHOCYTES % (AUTO) 5 % (12-44); MEAN CORPUSCULAR HEMOGLOBIN 34 PG (25-34); MEAN CORPUSCULAR HGB CONC 35 G/DL (32-36); MEAN CORPUSCULAR VOLUME 95 FL (80-99); MEAN PLATELET VOLUME 9.2 FL (7.4-10.4); MONOCYTES # (AUTO) 2.1 X 10^3 (0.0-1.0); MONOCYTES % (AUTO) 18 % (0-12); NEUTROPHILS # (AUTO) 8.6 X 10^3 (1.8-7.8); NEUTROPHILS % (AUTO) 76 % (42-75); PLATELET COUNT 283 10^3/uL (130-400); RED BLOOD COUNT 4.53 10^6/uL (4.35-5.85); RED CELL DISTRIBUTION WIDTH 12.2 % (10.0-14.5); WHITE BLOOD COUNT 11.3 10^3/uL (4.3-11.0)
[2018-04-18 06:26] LABS: ALANINE AMINOTRANSFERASE 28 U/L (0-55); ALBUMIN 3.3 GM/DL (3.2-4.5); ALKALINE PHOSPHATASE 49 U/L (40-136); BILIRUBIN,TOTAL 1.2 MG/DL (0.1-1.0); BUN/CREATININE RATIO 19; CARBON DIOXIDE 19 MMOL/L (21-32); CHLORIDE 104 MMOL/L (98-107); CREATININE SERUM 0.73 MG/DL (0.60-1.30); GFR ESTIMATED > 60; GLUCOSE 92 MG/DL (70-105); LIPASE 122 U/L (8-78); POTASSIUM 4.1 MMOL/L (3.6-5.0); SODIUM 136 MMOL/L (135-145); TOTAL PROTEIN 6.5 GM/DL (6.4-8.2)
[2018-04-18 08:00] VITALS: BP 158/91
[2018-04-18] MEDS: SENNA W/DOCUSATE (SENOKOT S) TABLET PO SCH (09:03)
[2018-04-18] MEDS: amLODIPine 10 MG (NORVASC) TAB PO SCH (09:03)
[2018-04-18] MEDS: raNItidine 50 MG/2 ML INJ (ZANTAC) IM/IV SCH (09:04)
[2018-04-18] MEDS: ENALAPRIL 10 MG (VASOTEC) TAB PO SCH (09:04)
[2018-04-18] MEDS ORDERED: OXYC-201 PO ×2 (11:43→12:06)
--- NOTE | 2018-04-18 11:44 | Discharge Summary-Hospitalist ---
Diagnosis/Chief Complaint Date of Admission Apr 15, 2018 at 06:00 Date of Discharge Discharge Date: Apr 18, 2018 Admission Diagnosis Acute pancreatitis Discharge Diagnosis (1) Pancreatitis Status: Acute (2) Excessive drinking alcohol Status: Chronic (3) Leukocytosis Status: Acute (4) Hyperkalemia Status: Resolved Discharge Summary Discharge Physical Exam Allergies: Coded Allergies: No Known Drug Allergies (Unverified , 04/14/18) Vitals & I&Os Vital Signs Date Time Temp Pulse Resp B/P (MAP) Pulse Ox O2 Delivery O2 Flow Rate FiO2 04/18/18 13:05 128 20 158/91 95 Room Air 04/18/18 08:00 98.6 General Appearance: Alert, Oriented X3, Cooperative Respiratory: Clear to Auscultation, Normal Air Movement Neuro: Normal Gait, Normal Speech, Strength at 5/5 X4 Ext Psych/Mental Status: Mental Status NL, Mood NL Hospital Course Hospital course: Patient was admitted for acute pancreatitis due to acute on chronic excessive alcohol use. Ultrasound showed no evidence of any gallbladder source. Dr. Goodman was consulted. Dilaudid PAINTER PLATE and IV fluids were maintained during hospital course and patient attain good pain control. Patient did improve lipase returned to near normal and was able to tolerate clear liquids and will be discharged home maintaining clear liquid diet to the weekend and advance slowly to soft bland diet. Alcohol cessation counseled. Labs (last 24 hrs) Patient resulted labs reviewed. Pending Labs Discussion & Recommendations Discharge Planning: <30 minutes discharge planning Discharge Home Medications: Active Scripts Active Percocet 7.5-325 mg Tablet (Oxycodone HCl/Acetaminophen) 1 Each Tablet 1 Each PO Q4H PRN Reported Amlodipine Besylate 10 Mg Tablet 10 Mg PO DAILY Citalopram HBr (Citalopram Hydrobromide) 10 Mg Tablet 10 Mg PO DAILY Enalapril Maleate 20 Mg Tablet 40 Mg PO DAILY TAKE 2 (20 MG) TABLETS ONCE DAILY Instructions to patient/family Please see electronic discharge instructions given to patient. Problem Qualifiers (1) Pancreatitis: Chronicity: acute Pancreatitis type: unspecified pancreatitis type Acute pancreatitis complication: no infection or necrosis Qualified Codes: K85.90 - Acute pancreatitis without necrosis or infection, unspecified JOE ROBIN DO Apr 18, 2018 11:44
[2018-04-18] MEDS ORDERED: POLYETHYLENE GLYCOL 17 GM (MIRALAX) PACK PO NR (12:15)
[2018-04-18 13:05] VITALS: BP 158/91
== END 2018-04-18 12:20 | disposition home or self-care (01) | DRG 440 ==
LOC: EDUNIT# 04:39 → ER 04:41 → 4TH 06:00
PROVIDERS: ADMIT Internal Medicine; ATTEND Internal Medicine
DX: K85.90 Acute pancreatitis without necrosis or infection, unspecified (principal); I10 Essential (primary) hypertension; R00.0 Tachycardia, unspecified; F17.290 Nicotine dependence, other tobacco product, uncomplicated; E87.5 Hyperkalemia; D72.829 Elevated white blood cell count, unspecified; Z72.89 Other problems related to lifestyle
CPT/HCPCS: 36415; 74177; 76700; 80048; 80053; 83605; 83690; 84478; 85007; 85025; 85027; 94664; 96361; 96374; 96375

== ENCOUNTER 2019-12-21 05:32 | Outpatient (CLI) | payer BC ==
[~2019-12-21] VITALS: Ht 175 cm; Wt 100.0 kg
[~2019-12-21 05:32] MED LIST changes: -AMLO10TA2 PO; +AMLO10TA7 PO; +OXYC1TAB16 PO
[2019-12-21] MEDS ORDERED: ENAL20TA PO (11:16)
[2019-12-21] MEDS ORDERED: LORA-405 PO (11:16)
== END 2019-12-21 11:19 | disposition home or self-care (01) ==
LOC: PREOP 05:32
PROVIDERS: ATTEND Internal Medicine
DX: Z01.818 Encounter for other preprocedural examination (principal)

== ENCOUNTER 2019-12-25 07:34 | Day surgery (SDC) | payer BC ==
--- NOTE | 2019-12-01 05:24 | HISTORY AND PHYSICAL ---
DATE OF SERVICE: COLONOSCOPY HISTORY AND PHYSICAL HISTORY OF PRESENT ILLNESS: The patient is a 54-year-old white male seen for initial evaluation on 11/26. He had had no previous history of screening colonoscopy and was deemed to be of average risk as he is not aware of any family history for colon cancer or polyps. PAST MEDICAL HISTORY: Significant for hypertension, presumed essential. He has had some intermittent bilateral carpal tunnel syndrome, worse on the right dominant hand and occasionally wakes him from sleep. He denies any chronic problems with numbness. He does have a brace that he sometimes uses for periods of overactivity. If he is using his computer mouse a lot He will have a little more right-sided symptoms. He denies any associated weakness. MEDICATIONS ON ADMISSION: Include amlodipine 10 mg, enalapril 20 mg, citalopram 10 mg daily that he was taking for some situational anxiety, which is improved, although he still takes medication and lorazepam 1 mg at bedtime for insomnia. FAMILY HISTORY: Father at age 66 of lung cancer and was a smoker. Mother is living at the age of 77 with no reported medical problems. Maternal grandfather also was diagnosed with lung cancer, was a smoker. Has 2 brothers, one of which diagnosed with atrial fibrillation, the other one, no known medical problems and one sister alive and well. SOCIAL HISTORY: He had a past history of drinking outside of moderate classification about 4 ounces of bourbon per day for a while. He had a bout of pancreatitis in 03/2018 and quit drinking since that time. He quit smoking at that time too, although still chews with 10 plus pack year history. He is treated for the past 14 years about one can every other day. PHYSICAL EXAMINATION: GENERAL: Reveals a pleasant white male, appears to be in no acute distress. VITAL SIGNS: Weight 241 pounds, roughly 5 feet 9 inches tall. Blood pressure 130/90 at the beginning of the interview, 130/80 at the end of the interview. Heart rate 72 and regular. HEENT: Unremarkable. Sclerae nonicteric. Oral cavity reveals Mallampati II pharyngeal configuration without erythema or exudate. NECK: Revealed no JVD, adenopathy or bruits. CHEST: Clear to auscultation. ABDOMEN: Soft, supple without mass, organomegaly or tenderness. EXTREMITIES: Reveal no cyanosis, clubbing or edema. SKIN: Evaluation reveals no suspicious nevi. RECTAL: Deferred at the time of colonoscopy and scheduled for 12/25. NEUROLOGIC: Bilateral respiratory therapy director strength is normal. No evidence for thenar or hypothenar atrophy. Sensation intact. ASSESSMENT AND PLAN: 1. Hypertension, under reasonable control. Discussed the importance of portion control to try to affect some weight loss as he does qualify for obesity with a BMI of 31. 2. Bilateral carpal tunnel, mild, advised that he wear his brace at night when symptomatic. If worsening, return for consideration for nerve conduction study. 3. The patient is set up for screening colonoscopy. Prep instructions with Suprep kit were given and questions were answered, discussing the rationale for screening colonoscopy. We will obtain medical record and the patient reports screening blood studies done within the last year. We will see him back in 6 months. Further recommendations pending old records evaluation. His electronic medical record was reviewed from his pancreatitis admission and on discharge, chemistry panel was normal and lipase was back to normal with no recurrence, presumably alcohol related as abdominal sonogram although poor quality. In addition, the CT of the abdomen revealed no evidence for biliary tract disease with findings compatible with pancreatitis and no pseudocyst formation. Job ID: [id number] DocumentID: [id number] Dictated Date: 11/26/2019 16:45:19 Paper Machine Back Tender Date: 11/26/2019 17:13:27 Dictated By: GERMAN STAPLETON MD [facility]OSPITALChito
[2019-12-25] VITALS (11 sets, daily range): BP systolic 102–135; BP diastolic 56–113
[~2019-12-25] VITALS: Ht 175 cm; Wt 100.0 kg
[~2019-12-25 07:34] MED LIST changes: +LORA-405 PO
[2019-12-25] MEDS ORDERED: D5 LR IV SOLUTION 1,000 ML IV ONE (07:39)
[2019-12-25] MEDS ORDERED: D5 LR IV SOLUTION 1,000 ML IV STA (07:46)
[2019-12-25] MEDS ORDERED: fentaNYL INJECTION 100 MCG/2 ML AMP IVP ONE (08:00)
[2019-12-25] MEDS ORDERED: LIDOCAINE JELLY 2% 6 ML SYRINGE MM PRN (08:00)
[2019-12-25] MEDS ORDERED: MIDAZOLAM 5 MG/5 ML (VERSED) VIAL IV PRN (08:00)
[2019-12-25] MEDS ORDERED: LIDOCAINE JELLY 2% 6 ML SYRINGE ONE (08:30)
[2019-12-25] MEDS ORDERED: MIDAZOLAM 5 MG/5 ML (VERSED) VIAL ONE (08:31)
[2019-12-25] MEDS ORDERED: fentaNYL INJECTION 100 MCG/2 ML AMP ONE (08:31)
--- NOTE | 2019-12-25 09:14 | Pre-Op Note & Conscious Sedat ---
Pre-Operative Progress Note H&P Reviewed The H&P was reviewed, patient examined and no changes noted. Date H&P Reviewed: Dec 25, 2019 Time H&P Reviewed: 07:55 Conscious Sedation Pre-Proced ASA Score 2 For ASA 3 and 4: Consider anesthesia and medical clearance. Also, for patients with a history of failed moderate sedation consider anesthesia. Airway Lungs Heart ASA score ASA 1: a normal healthy patient ASA 2: a patient with a mild systemic disease (mid diabetes, controlled hypertension, obesity ASA 3: a patient with a severe systemic disease that limits activity (angina, COPD, prior Myocardial infarction) ASA 4: a patient with an incapacitating disease that is a constant threat to life (CHF, renal failure) ASA 5: a moribund patient not expected to survive 24 hrs. (ruptured aneurysm) ASA 6: a declared brain- patient whose organs are being harvested. For emergent operations, add the letter E after the classification Mallampati Classification Grade 2 Sedation Plan Analgesia, Amnesia, Plan communicated to team members, Discussed options with patient/fam, Discussed risks with patient/fam The patient is an appropriate candidate to undergo the planned procedure, sedation, and anesthesia. The patient immediately re-assessed prior to indication. GERMAN STAPLETON MD Dec 25, 2019 09:14
--- NOTE | 2019-12-25 13:30 | OPERATIVE REPORT ---
DATE OF SERVICE: COLONOSCOPY SUMMARY INDICATION FOR THE PROCEDURE: Screening colonoscopy. DESCRIPTION OF PROCEDURE: The patient was placed in the left lateral decubitus position. Prior to undergoing colonoscopy, digital rectal evaluation was performed. Anal sphincter tone was normal and the perianal reflexes intact. Prostate was normal in size, anodular, nontender to digital inspection. No abnormalities noted on digital inspection of anal canal or distal rectal vault. The colonoscope was then inserted into the rectum and under direct visualization advanced to cecum. The cecum was identified by identification of the ileocecal valve and cecal strap. Photographic documentation was obtained. Careful inspection was made as the colonoscope was withdrawn. The patient tolerated the procedure well. FINDINGS: No evidence for internal or external hemorrhoids and the rectum, sigmoid colon, descending colon, splenic flexure, transverse colon, hepatic flexure, ascending colon and cecum were unremarkable. No evidence for diverticular disease or neoplasia was identified. ASSESSMENT: Normal colonoscopy to the cecum. As the patient is not aware of any family history for colon cancer, we will be advocating consideration for repeat screening colonoscopy in 10 years. Digital evaluation of the prostate was unremarkable. Job ID: [id number] DocumentID: [id number] Dictated Date: 12/25/2019 09:23:36 Process Analyst Date: 12/25/2019 13:29:04 Dictated By: GERMAN STAPLETON MD
== END 2019-12-25 09:40 | disposition home or self-care (01) ==
LOC: ENDO 07:34
PROVIDERS: ATTEND Internal Medicine
DX: Z12.11 Encounter for screening for malignant neoplasm of colon (principal); I10 Essential (primary) hypertension; F17.220 Nicotine dependence, chewing tobacco, uncomplicated; Z79.899 Other long term (current) drug therapy; Z80.1 Family history of malignant neoplasm of trachea, bronchus and lung